=== PATIENT | female | born 1995 | race Caucasian/White ===

== ENCOUNTER → 2019-10-13 | Outpatient (CLI) | payer MEDICAID ==
[2019-10-18 12:08] LABS: CHLAMYDIA TRACHOMATIS, NAA Negative (Negative); NEISSERIA GONORRHOEAE, NAA Negative (Negative)
== END ==
LOC: LB.CLINIC 15:40
PROVIDERS: ATTEND Nurse Practitioner Family
DX: N89.8 Other specified noninflammatory disorders of vagina (principal); Z72.51 High risk heterosexual behavior
CPT/HCPCS: 87491; 87591

== ENCOUNTER 2020-06-14 17:49 | Emergency (ER) | payer MEDICAID ==
[2020-06-14 18:04] VITALS: BP 120/85; PULSE 93
--- NOTE | 2020-06-14 18:19 | EDM.PDOC ---
ED HPI GENERAL MEDICAL PROBLEM - General Chief Complaint: General Stated Complaint: UTI Time Seen by Provider: 06/14/20 18:10 Source of Information: Reports: Patient History Limitations: Reports: No Limitations - History of Present Illness INITIAL COMMENTS - FREE TEXT/NARRATIVE: Patient complains of burning and frequency that started today . Thinks she has a UTI. Similar symptoms to prior episodes Onset: Today (Several hours) Onset Date: 06/14/20 Duration: Hour(s): (Several hours) Quality: Reports: Burning Severity: Moderate (Similar to prior UTI cases) Bilateral Pelvic Pain Score (Numeric/FACES): 2 - Related Data Allergies Allergy/AdvReac Type Severity Reaction Status Date / Time No Known Allergies Allergy Verified 06/14/20 17:53 Home Meds: Home Meds Escitalopram Oxalate 20 mg PO DAILY 06/14/20 [History] hydrOXYzine HCL [Hydroxyzine HCl] 10 mg PO ASDIRECTED 06/14/20 [History] Past Medical History [employer] History: Reports: Social & Family History - Family History Family Medical History: Noncontributory ED ROS GENERAL - Review of Systems Review Of Systems: See Below Constitutional: Denies: Fever, Chills GI/Abdominal: Denies: Abdominal Pain, Nausea, Vomiting : Reports: Dysuria, Frequency, Pain. Denies: Discharge, Flank Pain Musculoskeletal: Reports: No Symptoms Skin: Reports: No Symptoms ED EXAM, GENERAL - Physical Exam Exam: See Below Exam Limited By: No Limitations General Appearance: Alert, WD/WN, No Apparent Distress Respiratory/Chest: No Respiratory Distress, Lungs Clear, Normal Breath Sounds Cardiovascular: Regular Rate, Rhythm, No Murmur GI/Abdominal: Soft, Non-Tender Back Exam: Normal Inspection, Full Range of Motion. No: CVA Tenderness (R), CVA Tenderness (L), Decreased Range of Motion Course - Vital Signs Last Recorded V/S: Last Vital Signs Temp 98 F 06/14/20 18:03 Pulse 93 06/14/20 18:03 Resp 18 06/14/20 18:03 BP 120/85 06/14/20 18:03 Pulse Ox 98 06/14/20 18:03 - Orders/Labs/Meds Orders: Active Orders 24 hr Category Date Time Status CULTURE URINE [RM] Urgent Lab 06/14/20 18:02 Received Labs: Laboratory Tests 06/14/20 Range/Units 18:02 Urine Color Yellow Urine Appearance Cloudy (CLEAR) Urine pH 5.5 (5.0-8.0) Ur Specific [place] >= 1.030 (1.003-1.030) Urine Protein Negative (NEGATIVE) mg/dL Urine Glucose (UA) Negative (NEGATIVE) mg/dL Urine Ketones Trace H (NEGATIVE) mg/dL Urine Occult Blood Trace-intact H (NEGATIVE) Urine Nitrite Negative (NEGATIVE) Urine Bilirubin Small H (NEGATIVE) Urine Urobilinogen 1.0 (0.2-1.0) E.U./dL Ur Leukocyte Esterase Small H (NEGATIVE) Urine RBC 5-10 H /HPF Urine WBC 20-30 H /HPF Urine WBC Clumps Few /HPF Ur Squamous Epith Cells Moderate /HPF Calcium Oxalate Crystal Few /HPF Urine Bacteria Few /HPF Meds: Medications Discontinued Medications Generic Name Dose Route Start Last Admin Trade Name Freq PRN Reason Stop Dose Admin Nitrofurantoin Macrocrystals 200 mg 06/14/20 18:30 Macrodantin .ROUTE 06/14/20 18:31 .STK-MED ONE Phenazopyridine HCl 1,200 mg 06/14/20 18:30 Pyridium .ROUTE 06/14/20 18:31 .STK-MED ONE Departure - Departure Time of Disposition: 18:25 Disposition: Home, Self-Care 01 Condition: Good Clinical Impression: UTI, Urinary tract infectious disease - Discharge Information *PRESCRIPTION DRUG MONITORING PROGRAM REVIEWED*: Not Applicable *COPY OF PRESCRIPTION DRUG MONITORING REPORT IN PATIENT JAYA: Not Applicable Instructions: Urinary Tract Infection, Adult, [id number] Referrals: PCP,None [Primary Care Provider] - Forms: ED Department Discharge Additional Instructions: Macrobid 100 mg 1 tablet twice a day for 5 days Pyridium 100 mg tablets 2 tablets three times a day for 2 days Drink plenty of fluids Return for increasing discomfort fever or other worsening or if not back to normal in 3 days Condition on discharge is stable Sepsis Event Note (ED) - Evaluation Sepsis Screening Result: No Definite Risk - My Orders Last 24 Hours: My Active Orders 06/14/20 18:02 CULTURE URINE [RM] Urgent - Assessment/Plan Last 24 Hours: My Active Orders 06/14/20 18:02 CULTURE URINE [RM] Urgent
[2020-06-14] MEDS ORDERED: Nitrofurantoin Macrocrystal 50 MG Cap ONE (18:30)
[2020-06-14] MEDS ORDERED: Phenazopyridine 100 MG Tab ONE (18:30)
== END 2020-06-14 18:35 | disposition home or self-care (01) ==
LOC: LB.ED 17:49
DX: N39.0 Urinary tract infection, site not specified (principal); Z79.899 Other long term (current) drug therapy
CPT/HCPCS: 81001; 87086; 87088; 87186; 99283; A9270